=== PATIENT | male | born 1970 | race Caucasian/White ===

== ENCOUNTER 2020-09-22 08:01 | Inpatient (IN) ==
[2020-09-22] MEDS ORDERED: KETOROLAC 30 MG/1 ML VIAL IV STA (08:36)
[2020-09-22 09:28] LABS: Basophils % 0.2 % (0.0-0.8); Hematocrit 40.7 VOL% (42.0-52.0); Hemoglobin 13.9 GM/DL (14.0-18.0); Immature Granulocytes % 0.6 %; Immature Granulocytes Absolute 0.08 #; Lymphocytes # 0.2 10*3/uL (1.4-4.0); Lymphocytes % 1.5 % (21.2-54.2); Mean Corpuscular HGB Conc 34.2 GM/DL (32-36); Mean Corpuscular Volume 82.6 FL (87-102); Mean Platelet Volume 10.9 FL (9.6-12.0); Monocytes % 7.3 % (1.7-12.7); Neutrophils % 90.4 % (38.7-73.9); Platelet Count 207 T/CUMM (130-400); Red Blood Count 4.93 MC/CUMM (3.8-5.5); Red Cell Distribution Width 13.2 % (9.3-17.3)
[2020-09-22 09:34] LABS: INR 1.1; PT Patient Result 12.1 SECS (9.8-11.9); Partial Thromboplastin Time 29.4 SECS (23.9-33.8)
[2020-09-22 10:49] LABS: Bilirubin,Urine Negative (Negative); Blood, Urine Negative (Negative); Glucose,Urine (UA) 150 mg/dL (Negative); Hyaline Casts,Urine 1 /LPF (0-3); Ketones,Urine Negative (Negative); Mucus,Urine Few /LPF (Occasional); Nitrite,Urine Negative (Negative); Protein,Urine 30 MG/DL; RBC,Urine 4 /HPF (0-4); Urine Appearance CLEAR (Clear); Urine Color Amber (Yellow); Urine Specific Gravity 1.021 (1.001-1.035); WBC,Urine 1 /HPF (0-6)
[2020-09-22 10:53] LABS: Lymphocytes 4 % (20-55); Nucleated Red Blood Cells 1 (0-5); Platelet Estimate Adequate; Segmented Neutrophils 89 % (50-85); Total Cells Counted 100
[2020-09-22 10:54] LABS: Microcytosis Slight; Ovalocytes Slight
[2020-09-22 12:10] LABS: Albumin 3.2 G/DL (3.4-5.0); Bilirubin,Total 2.2 MG/DL (0.2-1.0); Calcium 9.2 MG/DL (8.5-10.1); Ferritin 547.6 ng/ml (26-388); Osmolality,Calculated 277.7 MOS/KG (273-304); Total Protein 6.9 G/DL (6.4-8.3)
[2020-09-22] MEDS ORDERED: HYDROmorphone 2 MG/1 ML VIAL IV STA ×2 (13:06→17:03)
[2020-09-22] MEDS ORDERED: ONDANSETRON 4 MG/2 ML VIAL IV STA (13:06)
[2020-09-22] MEDS ORDERED: HYDROmorphone 2 MG/1 ML VIAL IV PRN (17:27)
[2020-09-22] MEDS ORDERED: VANCOMYCIN INJ 1,000 MG in SODIUM CHLORIDE 0.9% 250 ML IV STA (18:07)
[2020-09-22] MEDS ORDERED: cefTRIAXone 1,000 MG in SODIUM CHLORIDE 0.9% 100 ML IV STA (18:07)
[2020-09-22] MEDS ORDERED: DEXTROSE 50% 25 GM/50 ML VIAL IV PRN (19:30)
[2020-09-22] MEDS ORDERED: GLUCAGON 1 MG VIAL IM PRN (19:30)
[2020-09-22] MEDS ORDERED: hydrALAZINE 20 MG/1 ML VIAL IV PRN (19:51)
[2020-09-22] MEDS: HYDROmorphone 2 MG/1 ML VIAL IV PRN (22:18)
[2020-09-22] MEDS: KETOROLAC 30 MG/1 ML VIAL IV SCH (22:20)
[2020-09-22] MEDS: SODIUM CHLOR 0.9% KCL 20 MEQ 20 MEQ/1,000 ML BAG IV SCH (22:22)
[2020-09-23] MEDS: HYDROmorphone 2 MG/1 ML VIAL IV PRN ×5 (02:07→23:38)
[2020-09-23] MEDS: ONDANSETRON 4 MG/2 ML VIAL IV PRN ×2 (02:08→21:14)
[2020-09-23] MEDS: KETOROLAC 30 MG/1 ML VIAL IV SCH ×4 (04:09→21:00)
[2020-09-23] MEDS: SODIUM CHLOR 0.9% KCL 20 MEQ 20 MEQ/1,000 ML BAG IV SCH ×4 (04:09→23:45)
[2020-09-23 05:24] LABS: Basophils % 0.2 % (0.0-0.8); Hematocrit 38.5 VOL% (42.0-52.0); Hemoglobin 13.1 GM/DL (14.0-18.0); Immature Granulocytes % 0.6 %; Immature Granulocytes Absolute 0.07 #; Lymphocytes # 0.6 10*3/uL (1.4-4.0); Lymphocytes % 4.8 % (21.2-54.2); Mean Corpuscular Volume 82.6 FL (87-102); Mean Platelet Volume 10.9 FL (9.6-12.0); Monocytes % 9.8 % (1.7-12.7); Neutrophils % 84.6 % (38.7-73.9); Platelet Count 208 T/CUMM (130-400); Red Blood Count 4.66 MC/CUMM (3.8-5.5); Red Cell Distribution Width 12.8 % (9.3-17.3); White Blood Count 11.4 T/CUMM (4-12)
[2020-09-23 05:45] LABS: Calcium 8.7 MG/DL (8.5-10.1); Osmolality,Calculated 272.8 MOS/KG (273-304)
[2020-09-23 05:53] LABS: Band Neutrophils 2 % (0-10); Lymphocytes 5 % (20-55); Platelet Estimate Normal; Segmented Neutrophils 86 % (50-85); Total Cells Counted 100
[2020-09-23] MEDS ORDERED: BACITRACIN OINT 0.9 GM PACK TOP ONE (07:37)
[2020-09-23] MEDS ORDERED: DIAZEPAM 5 MG TABLET PO ONE (07:52)
[2020-09-23] MEDS: METOPROLOL SUCCINATE XL 25 MG TABLET PO SCH (08:11)
[2020-09-23] MEDS: hydroCHLOROthiazide 12.5 MG CAPSULE PO SCH (08:11)
[2020-09-23] MEDS: LOSARTAN 50 MG TABLET PO SCH (08:11)
[2020-09-23] MEDS ORDERED: SUGAMMADEX 200 MG/2 ML VIAL IV ONE (09:38)
[2020-09-23] MEDS ORDERED: propofoL 200 MG/20 ML VIAL IV ONE (09:49)
[2020-09-23] MEDS ORDERED: KETOROLAC 30 MG/1 ML VIAL ONE (09:50)
[2020-09-23] MEDS ORDERED: SEVOFLURANE 1 UNIT/15 MINUTE INH ONE (09:50)
[2020-09-23] MEDS ORDERED: MIDAZOLAM 2 MG/2 ML VIAL ONE (09:50)
[2020-09-23] MEDS ORDERED: LIDOCAINE 2% 5 ML VIAL ONE (09:50)
[2020-09-23] MEDS ORDERED: DEXAMETHASONE 4 MG/1 ML VIAL ONE (09:50)
[2020-09-23] MEDS ORDERED: GLYCOPYRROLATE 0.4 MG/2 ML VIAL ONE ×2 (09:50)
[2020-09-23] MEDS ORDERED: fentaNYL 100 MCG/2 ML VIAL ONE (09:50)
[2020-09-23] MEDS ORDERED: ONDANSETRON 4 MG/2 ML VIAL ONE (09:50)
[2020-09-23] MEDS ORDERED: ROCURONIUM 100 MG/10 ML VIAL IV ONE (09:51)
[2020-09-23] MEDS ORDERED: SUCCINYLCHOLINE 200 MG/10 ML VIAL ONE (09:51)
[2020-09-23] MEDS ORDERED: PHENYLEPHRINE 1 MG/10 ML SYRINGE IV ONE (09:51)
[2020-09-23] MEDS ORDERED: NEOSTIGMINE 10 MG/10 ML VIAL ONE (09:51)
[2020-09-23] MEDS: PANTOPRAZOLE 40 MG TABLET PO SCH (14:06)
[2020-09-23] MEDS: VANCOMYCIN INJ 1,250 MG in SODIUM CHLORIDE 0.9% 250 ML IV SCH ×2 (14:06→21:00)
[2020-09-23] MEDS ORDERED: cefTRIAXone 2,000 MG in SYRINGE 1 EACH IV SCH (19:00)
[2020-09-23] MEDS ORDERED: cefTRIAXone 1,000 MG in SYRINGE 1 EACH IV SCH (19:00)
[2020-09-24] MEDS: KETOROLAC 30 MG/1 ML VIAL IV SCH ×4 (03:41→21:01)
[2020-09-24 05:56] LABS: Basophils % 0.1 % (0.0-0.8); Hematocrit 35.1 VOL% (42.0-52.0); Immature Granulocytes % 0.5 %; Immature Granulocytes Absolute 0.07 #; Lymphocytes # 1.1 10*3/uL (1.4-4.0); Lymphocytes % 7.5 % (21.2-54.2); Mean Corpuscular HGB Conc 34.2 GM/DL (32-36); Mean Corpuscular Volume 82.6 FL (87-102); Mean Platelet Volume 11.2 FL (9.6-12.0); Neutrophils % 83.9 % (38.7-73.9); Platelet Count 229 T/CUMM (130-400); Red Blood Count 4.25 MC/CUMM (3.8-5.5); Red Cell Distribution Width 12.7 % (9.3-17.3); White Blood Count 14.6 T/CUMM (4-12)
[2020-09-24 06:14] LABS: Calcium 8.8 MG/DL (8.5-10.1)
[2020-09-24] MEDS: SODIUM CHLOR 0.9% KCL 20 MEQ 20 MEQ/1,000 ML BAG IV SCH (07:42)
[2020-09-24] MEDS: hydroCHLOROthiazide 12.5 MG CAPSULE PO SCH (09:08)
[2020-09-24] MEDS: LOSARTAN 50 MG TABLET PO SCH (09:08)
[2020-09-24] MEDS: PANTOPRAZOLE 40 MG TABLET PO SCH (09:08)
[2020-09-24] MEDS: FONDAPARINUX 2.5 MG/0.5 ML SYRINGE SUBCUT SCH (09:08)
[2020-09-24] MEDS: METOPROLOL SUCCINATE XL 25 MG TABLET PO SCH (09:08)
[2020-09-24] MEDS: VANCOMYCIN INJ 1,250 MG in SODIUM CHLORIDE 0.9% 250 ML IV SCH (09:08)
[2020-09-24] MEDS: tiZANidine 4 MG TABLET PO PRN ×2 (12:40→21:11)
[2020-09-24] MEDS: VANCOMYCIN INJ 1,500 MG in SODIUM CHLORIDE 0.9% 500 ML IV SCH (23:06)
[2020-09-25] MEDS: HYDROmorphone 2 MG/1 ML VIAL IV PRN ×2 (01:53→08:31)
[2020-09-25] MEDS: KETOROLAC 30 MG/1 ML VIAL IV SCH ×4 (03:23→20:41)
[2020-09-25] MEDS: VANCOMYCIN INJ 1,500 MG in SODIUM CHLORIDE 0.9% 500 ML IV SCH ×3 (05:20→22:11)
[2020-09-25] MEDS: ONDANSETRON 4 MG/2 ML VIAL IV PRN (08:31)
[2020-09-25] MEDS: PANTOPRAZOLE 40 MG TABLET PO SCH (09:01)
[2020-09-25] MEDS: METOPROLOL SUCCINATE XL 25 MG TABLET PO SCH (09:01)
[2020-09-25] MEDS: FONDAPARINUX 2.5 MG/0.5 ML SYRINGE SUBCUT SCH (09:01)
[2020-09-25] MEDS: LOSARTAN 50 MG TABLET PO SCH (09:01)
[2020-09-25] MEDS: hydroCHLOROthiazide 12.5 MG CAPSULE PO SCH (09:06)
[2020-09-25] MEDS ORDERED: BISACODYL 5 MG TABLET PO PRN (19:51)
[2020-09-25] MEDS: tiZANidine 4 MG TABLET PO PRN (22:10)
[2020-09-26] MEDS: KETOROLAC 30 MG/1 ML VIAL IV SCH ×4 (03:35→20:40)
[2020-09-26 05:05] LABS: Basophils # 0.1 10*3/uL (0.0-0.2); Basophils % 1.5 % (0.0-0.8); Eosinophils # 0.3 10*3/uL (0.0-0.87); Eosinophils % 2.8 % (0.00-10.9); Hematocrit 37.9 VOL% (42.0-52.0); Hemoglobin 12.7 GM/DL (14.0-18.0); Immature Granulocytes % 5.1 %; Immature Granulocytes Absolute 0.47 #; Lymphocytes # 2.4 10*3/uL (1.4-4.0); Mean Corpuscular HGB Conc 33.5 GM/DL (32-36); Mean Corpuscular Volume 82.9 FL (87-102); Mean Platelet Volume 10.6 FL (9.6-12.0); Monocytes % 7.9 % (1.7-12.7); Neutrophils % 56.7 % (38.7-73.9); Platelet Count 293 T/CUMM (130-400); Red Blood Count 4.57 MC/CUMM (3.8-5.5); Red Cell Distribution Width 12.7 % (9.3-17.3); White Blood Count 9.2 T/CUMM (4-12)
[2020-09-26] MEDS: VANCOMYCIN INJ 1,500 MG in SODIUM CHLORIDE 0.9% 500 ML IV SCH ×3 (05:09→22:25)
[2020-09-26 05:23] LABS: Calcium 8.6 MG/DL (8.5-10.1); Osmolality,Calculated 279.3 MOS/KG (273-304)
[2020-09-26 05:46] LABS: Eosinophils 2 % (0-10); Hypochromasia 1+; Lymphocytes 27 % (20-55); Microcytosis 1+; Platelet Estimate Adequate; Segmented Neutrophils 64 % (50-85); Total Cells Counted 100
[2020-09-26] MEDS: LOSARTAN 50 MG TABLET PO SCH (08:27)
[2020-09-26] MEDS: METOPROLOL SUCCINATE XL 25 MG TABLET PO SCH (08:28)
[2020-09-26] MEDS: hydroCHLOROthiazide 12.5 MG CAPSULE PO SCH (08:28)
[2020-09-26] MEDS: PANTOPRAZOLE 40 MG TABLET PO SCH (08:28)
[2020-09-26] MEDS: FONDAPARINUX 2.5 MG/0.5 ML SYRINGE SUBCUT SCH (08:28)
[2020-09-26] MEDS: ONDANSETRON 4 MG/2 ML VIAL IV PRN (08:49)
[2020-09-26] MEDS ORDERED: MAGNESIUM CITRATE 300 ML BOTTLE PO ONE (12:00)
[2020-09-26] MEDS: tiZANidine 4 MG TABLET PO PRN (22:53)
[2020-09-27] MEDS: KETOROLAC 30 MG/1 ML VIAL IV SCH ×3 (03:36→15:59)
[2020-09-27 05:16] LABS: Basophils % 0.4 % (0.0-0.8); Eosinophils # 0.4 10*3/uL (0.0-0.87); Eosinophils % 3.4 % (0.00-10.9); Hematocrit 36.6 VOL% (42.0-52.0); Hemoglobin 12.5 GM/DL (14.0-18.0); Immature Granulocytes % 8.7 %; Immature Granulocytes Absolute 0.94 #; Lymphocytes # 2.8 10*3/uL (1.4-4.0); Mean Corpuscular HGB Conc 34.2 GM/DL (32-36); Mean Corpuscular Volume 82.4 FL (87-102); Monocytes % 6.5 % (1.7-12.7); Platelet Count 312 T/CUMM (130-400); Red Blood Count 4.44 MC/CUMM (3.8-5.5); Red Cell Distribution Width 12.6 % (9.3-17.3); White Blood Count 10.8 T/CUMM (4-12)
[2020-09-27] MEDS: VANCOMYCIN INJ 1,500 MG in SODIUM CHLORIDE 0.9% 500 ML IV SCH ×3 (05:29→21:14)
[2020-09-27 05:43] LABS: Albumin 2.5 G/DL (3.4-5.0); Bilirubin,Total 0.7 MG/DL (0.2-1.0); Osmolality,Calculated 280.3 MOS/KG (273-304); Total Protein 6.3 G/DL (6.4-8.3)
[2020-09-27 05:45] LABS: Eosinophils 1 % (0-10); Lymphocytes 24 % (20-55); Microcytosis Slight; Platelet Estimate Normal; Segmented Neutrophils 66 % (50-85); Total Cells Counted 100
[2020-09-27] MEDS: hydroCHLOROthiazide 12.5 MG CAPSULE PO SCH (08:56)
[2020-09-27] MEDS: METOPROLOL SUCCINATE XL 25 MG TABLET PO SCH (08:57)
[2020-09-27] MEDS: PANTOPRAZOLE 40 MG TABLET PO SCH (08:57)
[2020-09-27] MEDS: LOSARTAN 50 MG TABLET PO SCH (08:57)
[2020-09-27] MEDS: FONDAPARINUX 2.5 MG/0.5 ML SYRINGE SUBCUT SCH (08:57)
[2020-09-27] MEDS: tiZANidine 4 MG TABLET PO PRN (21:15)
[2020-09-28] MEDS: VANCOMYCIN INJ 1,500 MG in SODIUM CHLORIDE 0.9% 500 ML IV SCH (05:23)
[2020-09-28 06:03] LABS: Basophils # 0.2 10*3/uL (0.0-0.2); Basophils % 1.3 % (0.0-0.8); Eosinophils # 0.3 10*3/uL (0.0-0.87); Eosinophils % 2.8 % (0.00-10.9); Hematocrit 37.7 VOL% (42.0-52.0); Hemoglobin 12.7 GM/DL (14.0-18.0); Immature Granulocytes % 11.7 %; Immature Granulocytes Absolute 1.44 #; Lymphocytes # 2.7 10*3/uL (1.4-4.0); Lymphocytes % 22.3 % (21.2-54.2); Mean Corpuscular HGB Conc 33.7 GM/DL (32-36); Mean Corpuscular Volume 83.4 FL (87-102); Mean Platelet Volume 9.7 FL (9.6-12.0); Monocytes % 5.8 % (1.7-12.7); Neutrophils % 56.1 % (38.7-73.9); Platelet Count 343 T/CUMM (130-400); Red Blood Count 4.52 MC/CUMM (3.8-5.5); White Blood Count 12.3 T/CUMM (4-12)
[2020-09-28 06:24] LABS: Albumin 2.7 G/DL (3.4-5.0); Bilirubin,Total 0.8 MG/DL (0.2-1.0); Calcium 8.8 MG/DL (8.5-10.1); Osmolality,Calculated 282.1 MOS/KG (273-304); Total Protein 6.3 G/DL (6.4-8.3)
[2020-09-28 06:26] LABS: Band Neutrophils 1 % (0-10); Eosinophils 1 % (0-10); Hypochromasia 1+; Lymphocytes 24 % (20-55); Microcytosis Slight; Segmented Neutrophils 69 % (50-85); Total Cells Counted 100
[2020-09-28 06:27] LABS: Atypical Lymphocytes Few
[2020-09-28 06:28] LABS: Platelet Estimate Normal
[2020-09-28] MEDS: LOSARTAN 50 MG TABLET PO SCH (10:24)
[2020-09-28] MEDS: hydroCHLOROthiazide 12.5 MG CAPSULE PO SCH (10:27)
[2020-09-28] MEDS: PANTOPRAZOLE 40 MG TABLET PO SCH (10:27)
[2020-09-28] MEDS: METOPROLOL SUCCINATE XL 25 MG TABLET PO SCH (10:27)
[2020-09-28] MEDS: FONDAPARINUX 2.5 MG/0.5 ML SYRINGE SUBCUT SCH (10:29)
[2020-09-28] MEDS ORDERED: LORazepam 2 MG/1 ML VIAL IV PRN (11:44)
[2020-09-29] MEDS: PANTOPRAZOLE 40 MG TABLET PO SCH (08:26)
[2020-09-29] MEDS: LOSARTAN 50 MG TABLET PO SCH (08:26)
[2020-09-29] MEDS: hydroCHLOROthiazide 12.5 MG CAPSULE PO SCH (08:26)
[2020-09-29] MEDS: METOPROLOL SUCCINATE XL 25 MG TABLET PO SCH (08:26)
[2020-09-29] MEDS: FONDAPARINUX 2.5 MG/0.5 ML SYRINGE SUBCUT SCH (08:26)
[2020-09-29 11:21] VITALS: BP 150/86
== END 2020-09-29 16:55 | disposition home health service (06) | DRG 507 ==
LOC: N.ED 08:01 → N.EDINP 08:01 → SUATTDRO 19:30 → N.3E 21:10 → SUATTDRO 09-23 13:36
PROVIDERS: ADMIT Internal Medicine; ATTEND Internal Medicine